=== PATIENT | female | born 1945 | race Caucasian/White ===

== ENCOUNTER → 2025-03-07 18:34 | Outpatient (REF) | payer MEDICARE, SELFPAY | LOC: WDC 18:34 | PROVIDERS: ATTENDING PHYSICIAN Internal Medicine Hematology & Oncology; FAMILY PHYSICIAN Internal Medicine | DX: Z12.31 Encounter for screening mammogram for malignant neoplasm of breast (principal) | CPT/HCPCS: 77063; 77067 ==